=== PATIENT | female | born 1995 | race Caucasian/White ===

== ENCOUNTER 2017-08-26 01:24 | Emergency (ER) | payer BC ==
[2017-08-26 01:34] VITALS: RESP 16
--- NOTE | 2017-08-26 02:19 | EDPHY ---
H & P Stated Complaint: laceration to top of head hit head on ceiling dancing HPI/ROS: HPI CHIEF COMPLAINT: Head injury, laceration, alcohol intoxication HISTORY OF PRESENT ILLNESS: This patient is a 22-year-old female, presents emergency room with a head injury. Patient drank alcohol this evening had 5-6 shots of liquor. He is intoxicated. She states that she was "Striking a pose" she jumped up and hit her head on the ceiling. She sustained an abrasion to the vertex of her scalp. She had bleeding. She denies headache. Denies LOC. She is highly intoxicated with alcohol. Tetanus shot is up-to-date. Past Medical History: Closed head injury Past Surgical History: No recent surgery Social History: Denies daily use of drugs alcohol tobacco products. Did drink 5 drinks this evening. Family History: Noncontributory ROS REVIEW OF SYSTEMS: A comprehensive 10 point review of systems is otherwise negative aside from elements mentioned in the history of present illness. Exam Constitutional intoxicated, smells of alcohol triage nursing summary reviewed, vital signs reviewed, awake/alert. Eyes normal conjunctivae and sclera, EOMI, PERRLA. HENT head/neck: Scalp hematoma present. Abrasion present. No laceration. Otherwise atraumatic head and neck exam. moist mucus membranes, no epistaxis, neck supple/ no meningismus, no raccoon eyes. Respiratory clear to auscultation bilaterally, normal breath sounds, no respiratory distress, no wheezing. Cardiovascular rate normal, regular rhythm, no murmur, no edema, distal pulses normal. Gastrointestinal soft, non-tender, no rebound, no guarding, normal bowel sounds, no distension, no pulsatile mass. Genitourinary no CVA tenderness. Musculoskeletal no midline vertebral tenderness, full range of motion, no calf swelling, no tenderness of extremities, no meningismus, good pulses, neurovascularly intact. Skin pink, warm, & dry, no rash, skin atraumatic. Neurologic awake, alert and oriented x 3, AAOx3, moves all 4 extremities equally, motor intact, sensory intact, CN II-XII intact, normal cerebellar, normal vision, normal speech. Psychiatric normal mood/affect. Heme/Lymph/Immune no lymphadenopathy. Differential Diagnosis: Includes but is not limited to in a particular order acute alcohol intoxication, closed head injury, concussion, intracranial bleed, skull fracture, subdural, scalp hematoma, scalp abrasion. Medical Decision Making: Plan for this patient breath alcohol. Additionally CT head without contrast for trauma. Additionally clean wound. Re-evaluation: Breath alcohol 134. CT scan of the head without contrast The results of the study are [scalp soft tissue swelling. No intracranial bleed or skull fracture. The study was read by Dr. Madrigal I viewed the images myself on the PACS system. 0456: This patient is mentating appropriately. Unremarkable neurological exam. Cranial nerves are intact. CT scan does not show acute traumatic injury. Most likely has a concussion old 1st closed-head injury. I do recommend she follows up with Dr. Kristen Rodriges about concussion. She had significant caution with brain injury and was followed closely by Dr. Rodriges. No evidence of bleed here. No evidence of scalp laceration. Scalp hematoma present and abrasion. Return precautions given. She understands. She is eager to be discharged from the emergency room. Source: Patient - Personal History LMP (Females 10-55): Over 28 Days Ago Current Tetanus Diphtheria and Acellular Pertussis (TDAP): Yes - Medical/Surgical History Hx Asthma: Yes Hx Chronic Respiratory Disease: No Hx Diabetes: No Hx Cardiac Disease: No Hx Renal Disease: No Hx Cirrhosis: No Hx Alcoholism: No Hx HIV/AIDS: No Hx Splenectomy or Spleen Trauma: No Other PMH: TBI - Social History Smoking Status: Light smoker Constitutional: Initial Vital Signs Temperature (C) 36.5 C 08/26/17 01:31 Heart Rate 95 08/26/17 01:31 Respiratory Rate 16 08/26/17 01:31 Blood Pressure 104/62 08/26/17 01:31 O2 Sat (%) 93 08/26/17 01:31 O2 Delivery Mode Room Air Allergies/Adverse Reactions: No Known Drug Allergies Allergy (Verified 03/07/15 17:49) Home Medications: Medication Instructions Recorded Albuterol [Proventil Inhaler HFA 1 - 2 puffs IH Q4H PRN 03/07/15 (*)] Acetaminophen [Tylenol 325mg (*)] 650 mg PO Q4 PRN #0 tab 03/26/15 Guar Gum [Benefiber/Nutrisource 1 each PO BID #0 pkt 03/26/15 Fiber (*)] Lidocaine 5% [Lidoderm 5% Patch 1 ea TD BID #30 patch 03/26/15 (*)] Tears/Hypromellose [Natural 1 drop EACHEYE Q2 PRN #0 opht.btl 03/26/15 Balance] Zolpidem Tartrate [Ambien 5MG (*)] 5 mg PO HS #30 tab 03/26/15 ADDERALL 15 MG TABLET 02/20/16 Adderall 20 mg (RX) 02/20/16 levETIRAcetam [Keppra] 500 mg PO DAILY #30 tab 02/20/16 Cephalexin [Keflex] 500 mg PO TID 5 Days cap 09/15/16 Departure - Departure Disposition: Home, Routine, Self-Care Clinical Impression: Alcohol intoxication Qualifiers: Complication of substance-induced condition: uncomplicated Qualified Code(s): F10.920 - Alcohol use, unspecified with intoxication, uncomplicated Scalp hematoma Qualifiers: Encounter type: initial encounter Qualified Code(s): S00.03XA - Contusion of scalp, initial encounter Condition: Good Instructions: Concussion (ED), Head Injury (ED), Alcohol Intoxication (ED), Contusion in Adults (ED), Hematoma (ED) Referrals: NONE *PRIMARY CARE P,. [Primary Care Provider] - As per Instructions Kristen Rodriges MD [Medical Doctor] - As per Instructions
[2017-08-26 04:49] VITALS: BP 86/59; PULSE 83; TEMP 98.6; O2SAT 96
== END 2017-08-26 04:56 | disposition home or self-care (01) ==
DX: S00.03XA Contusion of scalp, initial encounter (principal); F10.920 Alcohol use, unspecified with intoxication, uncomplicated; J45.909 Unspecified asthma, uncomplicated; F17.200 Nicotine dependence, unspecified, uncomplicated; W22.8XXA Striking against or struck by other objects, initial encounter